=== PATIENT | male | born 1970 | race Caucasian/White ===

== ENCOUNTER 2024-01-09 05:08 | Inpatient (IN) | payer BC, SELFPAY ==
[2024-01-08 18:44] VITALS: BP 135/103
[2024-01-08 19:04] LABS: % Basophils 0.5 % (0-2); % Eosinophils 0.8 % (0-6); % Immature Granulocytes 0.4 % (0-0.5); % Monocytes 7.5 % (1.7-9.3); % Neutrophils 78.8 % (42.2-75.2); Absolute Basophils 0.1 10^3/uL (0-0.2); Absolute Eosinophils 0.1 10^3/uL (0-0.7); Absolute Immature Granulocytes 0.1 10^3/uL (0-0.05); Absolute Lymphocytes 1.7 10^3/uL (1.2-3.4); Absolute Monocytes 1.1 10^3/uL (0.1-0.6); Absolute Neutrophils 11.3 10^3/uL (1.4-6.5); Hematocrit 44.2 % (39.0-52.0); Hemoglobin 16.3 g/dL (13.0-18.0); Mean Corp Hgb Conc. 36.9 g/dL (33.0-37.0); Mean Corpuscular Hgb 30.1 pg (27.0-31.0); Mean Corpuscular Volume 81.7 fL (80.0-94.0); Nucleated Red Blood Cells % 0 % (-); Platelet Count 175 10^3/uL (130-400); Red Blood Cell Count 5.41 10^6/uL (4.70-6.10); Red Cell Dist. Width 12.1 % (11.5-14.5); White Blood Cell Count 14.4 10^3/uL (4.8-10.8)
[2024-01-08 19:14] LABS: Lactic Acid 3.8 mmol/L (0.7-2.0)
[2024-01-08 19:17] LABS: Erythrocyte Sed Rate 7 mm/hour (0-20)
[2024-01-08 19:20] LABS: C-Reactive Protein < 5.00 mg/L (0.0-10.00)
[2024-01-08 19:41] LABS: ALT (SGPT) 47 U/L (0-50); AST (SGOT) 36 U/L (17-59); Albumin 5.1 g/dl (3.5-5.0); Alkaline Phosphatase 71 U/L (38-126); Blood Urea Nitrogen 29 mg/dl (9-20); Calcium 9.7 mg/dl (8.4-10.2); Carbon Dioxide 20 mmol/L (22-30); Chloride 97 mmol/L (98-107); Glucose 326 mg/dl (70-99); Potassium 4.4 mmol/L (3.5-5.1); Sodium 135 mmol/L (135-145); Total Bilirubin 1.4 mg/dl (0.2-1.3); Total Protein 7.6 g/dl (6.3-8.2); eGFR 55.32
--- NOTE | 2024-01-08 21:47 | ED.GENMED ---
History of Present Illness
<Meggan Jenkins DO, Resident - Last Filed: 01/08/24 23:02>
General
Chief Complaint: Numbness
Source: patient
Exam Limitations: none
Time Seen by Provider: 01/08/24 20:48
Nursing documentation reviewed up to this point in time: agreed with
History of Present Illness
History of Present Illness:
Mr. 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 These sx started when he awoke on (01/02). He reports feeling like his legs will give
out on him due to the numbness, but has not fallen. 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 Today, he put his respirator mask on and the L leg numbness shot into his L side, chest, and arm. This resolved after taking the mask off. Reports
concern over being dehydrated due to nature of his work and recent high temperatures. Has had headaches, but he suspects they are due to dehydration. He denies back pain, saddle anesthesia, and incontinence. Denies hx trauma.
2 weeks ago pt [place] [facility] [employer] [employer] [place] and drank well water there. 1 week ago, pt reports 1 day of nonbloody diarrhea and vomiting. About the same time, he had a 'chest cold' with cough productive of clear
mucous.
Pt does not follow with PCP.
Past History
<Meggan Jenkins DO, Resident - Last Filed: 01/08/24 23:02>
Past History
ED Past Medical History: Other (lyme disease)
Review of Systems
<Meggan Jenkins DO, Resident - Last Filed: 01/08/24 23:02>
Review of Systems
All Other Systems: ROS reviewed and negative except as documented in HPI and ROS
Constitutional: Denies fever or night sweats
Cardiac: Reports diaphoresis; Denies palpitations
ABD/GI: Denies abdominal pain
Neurological: Reports headache, weakness and numbness; Denies dizzy
Phy Exam
<Meggan Jenkins DO, Resident - Last Filed: 01/08/24 23:02>
Physical Exam
Physical Exam:
.
General Physical Exam
General Presentation: mild distress
General age: appears older than age
General Skin: warm
General Mental: alert
ENT Exam
ENT Exam: normocephalic
Cardiovascular Exam
Cardiovascular Exam: no edema, no gallop, no JVD, no murmur, normal peripheral pulses (+2 b/l popliteal, posterior tibial pulses), tachycardia and other (regular rhythm)
Heart Sounds: normal
Pulmonary Exam
Pulmonary Exam: lungs clear, no respiratory distress, no rales, chest non tender, no rhonchi and no wheezing
Oxygen Status: room air
Cough: no cough
Gastrointestinal Exam
Gastrointestinal Exam: normal bowel sounds, non tender, soft, no organomegaly and non distended
Neurological Exam
Neurological Exam: alert, oriented x3, speech normal, motor weakness, sensory deficit and other (b/l negative straight leg test, negative pronator drift)
Motor
Bilateral upper extremities: 5
Bilateral lower extremities: 3
Sensory
Sensory Exam: other (decreased sensation to touch in R lower extremity. Decreased sensation to touch in Left L1, L2, L3,L5 dermatomes. Loss of sensation to touch in Left L4, S1, S2 dermatomes.)
Course
<Meggan Jenkins DO, Resident - Last Filed: 01/08/24 23:02>
Orders/Labs/Results
Orders:
Orders
01/08/24 18:48
Electrocardiogram (*1) Urgent
Reason for Study: Fatigue / Weakness
US Legs, Bilateral [US Periph Venous LOWER Ext Omid] Urgent
Comment:
Reason For Exam: numbness/tingling
01/08/24 18:49
EKG- Treatment ONCE
01/08/24 18:56
C-Reactive Protein Urgent
Complete Blood Count/With Diff Urgent
Comprehensive Metabolic Panel Urgent
Erythrocyte Sed Rate Urgent
Lactic Acid Urgent
01/08/24 21:45
0.9% Sodium Chloride 1000 ml [Nss] 1,000 ml IV BOLUS
01/09/24 00:25
CT Head W/o Iv Contrast Urgent
Reason For Exam: new onset leg numbness and weakness
Abnormal Lab Results
01/08/24
18:56
WBC 14.4 H 10^3/uL
(4.8-10.8)
MPV 11.0 H fL
(7.4-10.4)
Abs Immat Gran (auto) 0.1 H 10^3/uL
(0-0.05)
Absolute Neuts (auto) 11.3 H 10^3/uL
(1.4-6.5)
Absolute Monos (auto) 1.1 H 10^3/uL
(0.1-0.6)
Neutrophils % 78.8 H %
(42.2-75.2)
Lymphocytes % 12.0 L %
(20.5-51.1)
Chloride 97 L mmol/L
(98-107)
Carbon Dioxide 20 L mmol/L
(22-30)
BUN 29 H mg/dl
(9-20)
Creatinine 1.5 H mg/dL
(0.7-1.3)
Glucose 326 H mg/dl
(70-99)
Lactic Acid 3.8 H mmol/L
(0.7-2.0)
Total Bilirubin 1.4 H mg/dl
(0.2-1.3)
Albumin 5.1 H g/dl
(3.5-5.0)
01/08/24 18:56
01/08/24 18:56
Vital Signs
Initial and Last Documented VS:
Initial Vital Signs
Temp Pulse Resp BP Pulse Ox
98.2 F 109 20 135/103 95
01/08/24 18:44 01/08/24 18:44 01/08/24 18:44 01/08/24 18:44 01/08/24 18:44
Last Documented Vital Signs
Temp Pulse Resp BP Pulse Ox
98.2 F 88 16 134/96 98
01/08/24 18:44 01/09/24 00:31 01/09/24 00:31 01/09/24 00:31 01/09/24 00:31
<Osmani Hays, DO - Last Filed: 01/09/24 01:25>
Orders/Labs/Results
Orders:
Orders
01/08/24 18:48
Electrocardiogram (*1) Urgent
Reason for Study: Fatigue / Weakness
US Legs, Bilateral [US Periph Venous LOWER Ext Omid] Urgent
Comment:
Reason For Exam: numbness/tingling
01/08/24 18:49
EKG- Treatment ONCE
01/08/24 18:56
C-Reactive Protein Urgent
Complete Blood Count/With Diff Urgent
Comprehensive Metabolic Panel Urgent
Erythrocyte Sed Rate Urgent
Lactic Acid Urgent
01/08/24 21:45
0.9% Sodium Chloride 1000 ml [Nss] 1,000 ml IV BOLUS
01/09/24 00:25
CT Head W/o Iv Contrast Urgent
Reason For Exam: new onset leg numbness and weakness
Abnormal Lab Results
01/08/24
18:56
WBC 14.4 H 10^3/uL
(4.8-10.8)
MPV 11.0 H fL
(7.4-10.4)
Abs Immat Gran (auto) 0.1 H 10^3/uL
(0-0.05)
Absolute Neuts (auto) 11.3 H 10^3/uL
(1.4-6.5)
Absolute Monos (auto) 1.1 H 10^3/uL
(0.1-0.6)
Neutrophils % 78.8 H %
(42.2-75.2)
Lymphocytes % 12.0 L %
(20.5-51.1)
Chloride 97 L mmol/L
(98-107)
Carbon Dioxide 20 L mmol/L
(22-30)
BUN 29 H mg/dl
(9-20)
Creatinine 1.5 H mg/dL
(0.7-1.3)
Glucose 326 H mg/dl
(70-99)
Lactic Acid 3.8 H mmol/L
(0.7-2.0)
Total Bilirubin 1.4 H mg/dl
(0.2-1.3)
Albumin 5.1 H g/dl
(3.5-5.0)
01/08/24 18:56
01/08/24 18:56
Vital Signs
Initial and Last Documented VS:
Initial Vital Signs
Temp Pulse Resp BP Pulse Ox
98.2 F 109 20 135/103 95
01/08/24 18:44 01/08/24 18:44 01/08/24 18:44 01/08/24 18:44 01/08/24 18:44
Last Documented Vital Signs
Temp Pulse Resp BP Pulse Ox
98.2 F 88 16 134/96 98
01/08/24 18:44 01/09/24 00:31 01/09/24 00:31 01/09/24 00:31 01/09/24 00:31
<Meggan Jenkins DO, Resident - Last Filed: 01/08/24 23:02>
MDM/Problems Addressed
Differential Diagnosis Includes:
ischemic stroke, PE, neurodegenerative disorder, guillain-barre syndrome, lumbar nerve compression, DVT, zoster radiculoganglionitis
MDM/Problems Addressed:
PE, DVT unlikely due to normal SpO2, normal breath sound throughout lungs, no evidence of DVT on peripheral u/s.
Zoster radiculoganglionitis unlikely due to sx being b/l and crossing midline, no preceding pain, no rash.
Lumbar nerve compression less likely because sx started suddenly, are b/l, and no hx trauma.
Chronic conditions affecting care: Other (lyme disease)
<Meggan Jenkins DO, Resident - Last Filed: 01/08/24 23:02>
*Radiology
Radiology exam reviewed: radiology read reviewed
*Pulse Oximetry
Patient hypoxic: no
*EKG
Interpreted by ED Provider?: Yes
EKG Intrepretation Date: 01/08/24
EKG Intrepretation Time: 22:48
Interpretation: normal
Comparison EKG: no comparison EKG present
Heart Rate: 98
Rate: normal
Rhythm: sinus
Interval: normal interval
QRS Pattern: normal QRS
Ischemia: no ischemia
*Critical Care Note
Total Time (30-74mins, 75-104mins- exclusive of procedures): Not Applicable
<Osmani Hays DO - Last Filed: 01/09/24 01:25>
*Instrument Person Interpretation
Rate: normal
Interpretation: normal
Heart Rate: 95
Rhythm: sinus
Data Reviewed
Review of Other/Old Records Reveals: Radiology Studies (CT head no acute findings)
<Osmani Hays DO - Last Filed: 01/09/24 01:25>
Patient Management
Discussion with other providers: Hospitalist
Escalation/DeEscalation of care consider admission/obs:
Admit indicated
ED Attending Note
<Meggan Jenkins DO, Resident - Last Filed: 01/08/24 23:02>
-
Portions of this chart may have been created with voice recognition software.� Occasional wrong word or��sound alike� substitutions may have occurred due to the inherent limitations of voice recognition software.
<Omsani Hays DO - Last Filed: 01/09/24 01:25>
ED Attending Note
Patient seen and examined by attending physician: Yes
I performed a history and physical exam of patient and discussed management with resident, I reviewed resident's note and agree with documented findings and plan of care.: Yes
ED Attending Note:
I have reviewed and agree with history and treatment plan by Meggan Jenkins. My exam revealed 53-year-old male, afebrile, ambulating with subjective numbness. Normal pulses in all extremities. Mid to hospitalist for further workup of lower leg
weakness and paresthesias, as well as lactic acidosis of unclear etiology. No focal infection found.
Discharge Plan
Departure
Patient Disposition: Admit
Date of Disposition: 01/09/24
Time of Disposition: 01:21
Admit to: Telemetry
Presentation/result/management discussed w/ accepting MD/DO: Hospitalist
Patient with high blood pressure during this ER visit?: Yes
Condition: Fair
Discharge Problem:
Bilateral leg weakness, Acute lactic acidosis
Referrals:
NONE,* [Family Provider] -
Interventions
Interventions:
*Risk Screen - Suicide Last Done: 01/08/24 18:44
*General Assessment Last Done: 01/08/24 18:44
*Neglect/Abuse Screening Last Done: 01/08/24 18:44
*ED COVID-19 Vaccine History Last Done: 01/08/24 22:36
ED- Neurological Assessment Last Done: 01/08/24 22:36
Discharge Date and Time
Print Language: SYRIAC
[2024-01-08] MEDS: NSS 1000 IV (22:04)
[2024-01-08 22:36] VITALS: BP 133/83
[2024-01-09 00:31] VITALS: BP 134/96
--- NOTE | 2024-01-09 04:19 | HPS.HSE ---
Family Physician
-
Family Physician: * NONE
Chief Complaint
-
Leg weakness and numbness
History of Present Illness
This is a 52-year-old male with no known significant past medical history who presents to the emergency department with approximately 1 week of leg weakness and numbness.
Patient reports being in usual state of health up until about a week ago when he suddenly developed a sense of fatigue in his legs bilaterally. He tried to hydrate himself and rest as he has been spending a lot of time in the sun. Despite this
measures the patient reports that the symptoms persisted and needed suddenly developed numbness in the bilateral lower extremities though he feels it is more prominent on the left side. He reports an episode where the numbness appeared to arise all
the way to his chest on the left side but this lasted however very brief. And then resolved. The numbness appeared to arise to the hips bilaterally. He denies any incontinence of the bladder or bowel. He denies any difficulty defecating. He
denies any difficulty emptying his bladder. He denies any slurred speech, double vision, dry eyes, facial asymmetry, normal headache, lightheadedness or dizziness.
Patient denies any recent cold or flulike symptoms. He denies any recent episodes of diarrhea. He denies any medications, supplements or intoxicants. He has no known sick contact. He has no recent travels. Patient denies any falls or injuries.
Denies any prior back injuries or surgeries. He works [employer] and denies any exposure to toxins. Denies alcohol use.
Reports prior history of Lyme disease. Denies any rash. Denies history of STDs.
In the ED he was afebrile hemodynamically stable and in no acute distress. CBC is completely within normal limits except for a slight leukocytosis to 14,000. Chemistries were normal except for serum creatinine of 1.5. Glucose was elevated at 326.
Lactic acid was also elevated at 3.8. His CRP was within normal limits. ECG showed normal sinus rhythm with left anterior fascicular block. Head CT was unremarkable. Bilateral LE u/s was negative for DVT.
Medical History
Past Medical History
Past Medical History: Reports None
Past Surgical History: Reports None
Social History
Tobacco: Former Smoker
Alcohol: None
Drug: None
Personal: Single
Living: Alone
Employment: Employed
Family History
Family History: Diabetes and Other (ETOH)
Allergies / Home Medications
Allergies reflects when Allergies were last updated in [facility].
Home Medications with original date entered in [facility]
Allergy/Medication List:
Allergies
Allergy/AdvReac Type Severity Reaction Status Date / Time
Penicillins Allergy Unknown Verified 01/08/24 18:44
Home Medications
No Meds [No Current Medications] 01/09/24
Review of Systems
-
Constitutional: Reports No Symptoms
EENT: Reports No Symptoms
Respiratory: Reports No Symptoms
Cardiac: Reports No Symptoms
Abdomen/GI: Reports No Symptoms
: Reports No Symptoms
Musculoskeletal: Reports No Symptoms
Skin: Reports No Symptoms
Neurological: Reports Weakness and Numbness
Endocrine: Reports No Symptoms
Hematologic/Lymphatic: Reports No Symptoms
Psych: Reports No Symptoms
Physical Exam
Vital Signs
Vital Signs
Temp Pulse Resp BP Pulse Ox
98.2 F 88 16 134/96 98
01/08/24 18:44 01/09/24 00:31 01/09/24 00:31 01/09/24 00:31 01/09/24 00:31
Physical Exam
General: Well Developed, Well Nourished and Comfortable
HEENT: NormoCephalic, Anicteric, Moist mucous membranes and Atraumatic
Respiratory: Clear
Cardiac: S1/S2 and Regular Rhythm
GI: Soft, Non Tender, Non Distended and Normal Bowel Sounds
Rectal: Other
Genito-urinary: Deferred by me
Musculoskeletal: No Clubbing, No Cyanosis and No Edema
Skin: Warm
Neuro: AO x 3, No Motor Deficits, Cranial Nerves Intact, DTR's Intact & Symmetrical and Other (decreased sensation to light touch in the lower extremities bilaterally starting at about the L1 dermatome. Intact hot/cold sensation Could not assess
pin-prick. There is loss of propioception)
Hematologic/Lymphatic: No Lymphadenopathy
Psych: Calm
Laboratory Results
-
01/08/24 18:56
01/08/24 18:56
Laboratory Results
Lactic Acid 3.8 mmol/L (0.7-2.0) H 01/08/24 18:56
Total Bilirubin 1.4 mg/dl (0.2-1.3) H 01/08/24 18:56
AST 36 U/L (17-59) 01/08/24 18:56
ALT 47 U/L (0-50) 01/08/24 18:56
Alkaline Phosphatase 71 U/L (38-126) 01/08/24 18:56
Data Reviewed
-
CT Scan: Report Reviewed by me
Ultrasound: Report Reviewed by me
Medical Tests (Nuc Med, Echo, EKG etc): Image Personally Visualized and interpreted
Lab Data: Labs Reviewed by me
Impression/Plan
-
IMPRESSION:
Patient with acute onset numbness in the bilateral lower extremities x 1 week with associated subjective weakness. Exam reveals sensory loss of light touch and proprioception. Strength is grossly intact and reflexes are intact. Heat/Cold sensation
is intact. There is mild unsteadiness of gait. Overall picture suggest a polyneuropathy versus spinal cord lesion in the thoracic area affecting dorsal columns such as transverse myelitis syringomyelia syphllis versus but less likely cord
compression. The history and labs are not immediately suggestive of an etiology.
PLAN:
1. Numbness/Weakness -
- admit to med/surg
- mri brain and thoracic spine for identifying inflammaory and possibly infectious lesions
- check a1c, syphillis, hiv, b12, cpk
- neurology consultation
- pt evaluation
2. Hyperglycemia - No known past medical hx. No polydispia. + Family Hx
- check a1c and lipid panel
- iv fluids and montior for now
DVT PPX - SCDs
Code Status - Full Code
[2024-01-09 05:51] LABS: Lactic Acid 1.8 mmol/L (0.7-2.0)
[2024-01-09 06:00] VITALS: BMI 26.9
[2024-01-09 06:15] VITALS: BP 133/95
--- NOTE | 2024-01-09 06:32 | PTCARENOTE ---
Patient arrived to room 3353. Oriented to room and use of call nettles. Able to transfer from stretcher to bed. All questions answered. VSS. Pt reports continued numbness/tingling to bilat LE. Admission questions completed. Labs re-drawn and sent.
[2024-01-09 07:06] LABS: Blood Urea Nitrogen 24 mg/dl (9-20); Calcium 8.8 mg/dl (8.4-10.2); Carbon Dioxide 25 mmol/L (22-30); Chloride 105 mmol/L (98-107); Creatine Phosphokinase 98 U/L (55-170); Estimated Creatinine Clearance 124 ml/min; Glucose 234 mg/dl (70-99); HDL Cholesterol 33 mg/dl; LDL Cholesterol, Calculated 105 mg/dl; Magnesium 1.8 mg/dl (1.6-2.3); Potassium 4.1 mmol/L (3.5-5.1); Sodium 138 mmol/L (135-145); Total Cholesterol 156 mg/dl (50-199); Triglyceride 91 mg/dl (10-149); Very Low Density Lipoprotein 18 mg/dl (0-30); eGFR > 60.00
[2024-01-09 08:02] LABS: Vitamin B12 207 pg/ml (239-931)
[2024-01-09 08:19] VITALS: BP 125/88
--- NOTE | 2024-01-09 08:24 | W.PN.HOSP.TC ---
Documented by User: Cirilo Weaver MD, Resident 01/09/24 13:20
Today's Communication/Plan
-
Will wait for further blood tests to return to further rule out pathological causes of patient's LE Numbness/sensory deficit. Possible MRI imaging. Will take several days for HIV/Syphilis testing to return.
Assessment / Plan
Assessment / Plan
53 yo gentleman with no prior medical history presented to the ED with a 1 week history of numbness in the lower extremities bilaterally
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
#Numbness/Weakness in the BL Lower Extremities
- BL LE numbness, L greater than R, muscle strength 4/5 in LLE and 5/5 in the RLE, UE sensation/motor intact. Proprioception diminished in the LLE.
- Neurology consulted; neuropathy vs. myelopathy. No further recommendations at this time.
- Syphilis RPR pending, HIV pending. Will take a few days - send out.
- Peripheral Vascular Ultrasound Doppler (-) for DVT
- Head Ct shows no acute intracranial abnormality. Pending MRI of the Brain, Cervical Spine/Thoracic Spine. May not go, pending Neuro evaluation.
- Will treat with [id number] B12 inj QD for 7 days, then Qweek, for one month, then monthly until symptoms resolve and/or B12 levels reach adequate levels. Patient will need to be on B12 supplementation life song to prevent recurrent symptoms.
#Leukocytosis?
- Unknown etiology, possibly reactive
#Vitamin B 12 Deficiency; uncertain etiology
- B12 level 207. No macrocytic anemia.
- Given 1000mcg IM injection x1 + Folate/B12 Supplement. Will monitor for symptomatic improvement.
- Consider MTHFR variant vs. Pernicious anemia possibly secondary to autoimmune gastritis.
- Homocysteine, MMA, and MTHFR Variant tests pending
#newly Diagnosed Diabetes Mellitus, Type II, uncontrolled
#Hyperglycemia
- Has not seen a PCP in years; never been diagnosed with DM
- Glucose in ED elevated with no prior history of DM
- A1C% 10.1
- Lipid Panel checked: Tg 91, TChol. 156, LDL 105, HDL 33
- began on moderate insulin sliding scale. Will discuss PO agents when transitioning to outpatient as this diagnosis is new.
#Dispo: Med/Surg
- Diet: Regular
- DVT PPx: Lovenox SC
- Code: Full Code
Anticipated Discharge: 24 - 48 hours
Subjective/Interval History
-
Seen in the AM. No new complaints. No changes in symptoms of numbness. Reporting weakness and unsteadiness of his feet which is unchanged from prior. There were no overnight events.
Objective Data
-
Labs:
Laboratory Results
01/09/24 01/09/24
05:25 06:38
Sodium Cancelled 138
Potassium Cancelled 4.1
Chloride Cancelled 105
Carbon Dioxide Cancelled 25
BUN Cancelled 24 H
Creatinine Cancelled 0.8
Glucose Cancelled 234 H
Calcium Cancelled 8.8
Vital Signs:
Vital Signs
Temp Pulse Resp BP Pulse Ox
97.7 F 82 16 133/95 94
01/09/24 06:20 01/09/24 07:53 01/09/24 07:53 01/09/24 06:15 01/09/24 07:53

Documented by User: Ti Blackwood DO 01/09/24 13:44
Physical Exam
-
General: No Apparent Distress, Comfortable and Respiratory Distress
HEENT: Normocephalic, Atraumatic, Moist Mucous Membranes and Anicteric
Respiratory: Clear to Auscultation and Non Labored Respirations; Negative Wheezes, Rales or Rhonchi
Cardiac: Regular Rhythm and S1/S2; Negative Murmur, Rub or Gallop
GI: Soft, Nontender, Nondistended and Normal Bowel Sounds
Musculoskeletal: No Clubbing, No Cyanosis and No Edema
Skin: Warm and Dry; Negative Rash
Neuro: AO x 3, Central Nerve's Intact and Other (4/5 MMS to Left foot dorsiflexion and knee flexion. 4+/5 MMS to remainder of LLE musculature. Reduced sensation over the medial left calf. 0+ DTR to lower extremities)
Data Reviewed
-
Labs: Labs Reviewed by me
--- NOTE | 2024-01-09 08:41 | PTCARENOTE ---
Assumed care of patient this AM. Patient AAO x3. Patient reports numbness in both legs with left greater than the right. Symptoms started about 1 week ago. Numbness is on the plantar region of bilateral feet and extends to the thighs. Patient
denies any pain. He is steady in his ambulation but is very careful with walking because of numbness. Patient is ringing for RN to go to bathroom. MRI of spine ordered. Neurology to see patient. Patient currently out of bed to chair eating
breakfast. Patient is ordered med-surgical. Vital signs stable, afebrile.
[2024-01-09] MEDS: FOLTX 1 TABLET PO (09:01)
[2024-01-09] MEDS: CYANOCOBALAMIN 1000 MCG IM (09:02)
[2024-01-09 11:32] LABS: Glycohemoglobin (HgbA1c) 10.1 % (4.0-5.6)
[2024-01-09] MEDS: NOVOLOG FLEXPEN-MODERATE RESISTANCE 5 UNITS SC (13:10)
[2024-01-09 13:25] LABS: Glucose - Point of Care 270 mg/dl (70-99)
--- NOTE | 2024-01-09 14:47 | PTCARENOTE ---
Report given to Majo GO. Patient transferred to [facility] bed 2 in wheelchair by transport. All belongings with the patient.
--- NOTE | 2024-01-09 15:03 | PTCARENOTE ---
Received pt from IMU via WC; accompanied by IMU staff. Pt AAO x3, OCHOA well; ambulatory to bed with assist x1; gait sl unsteady; pt states legs are numb for low hips-feet; no tactile sensation; weak dorsal and plantar flexion. Fall prec initiated.
VSS. On room air- pulse ox 96%, no SOBnoted. Abd soft, rounded, on reg diet. Pt DTV; states he will ambulate to BR with assistance; urinal at bedside. Afebrile; W/D/I. Rt AC INT P/I without sx of infiltration. Oriented to 4east, currently
resting comfortably. Will continue to monitor.
--- NOTE | 2024-01-09 15:20 | CM ---
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 Room air. Receiving SC Insulin. PT/OT Evals pending. MRI C&T Spine pending.
Spoke with patient who resides in a 1 story in-law unit with 1 CHAKA, attached to garage on property where his mother also resides.
The patient has been independent in ADLs and ambulation.
He was active working as a [employer] until yesterday.
The patient reports that recently his left leg has been weak and almost giving out when walking.
The patient has no DME.
No prior VN.
He has no PCP however he contacted [employer] with his union who is helping him find one.
[facility] - [facility]
The patient says he is single and has no children.
He helps his mother with chores but she is otherwise able to care for herself.
Plan follow up after seen by PT/OT.
[2024-01-09 15:25] VITALS: BP 100/70
[2024-01-09] MEDS: XANAX 0.5 MG PO (16:13)
[2024-01-09 16:39] LABS: Iron 161 ug/dl (49-181)
[2024-01-09 16:48] LABS: Percent Saturation 52 % (20-50); Total Iron Binding Capacity 308 ug/dl (261-462)
[2024-01-09 18:23] LABS: Glucose - Point of Care 132 mg/dl (70-99)
[2024-01-09] MEDS: LOVENOX 40 MG SC (18:29)
[2024-01-09] MEDS: NOVOLOG FLEXPEN-MODERATE RESISTANCE SC (18:29)
--- NOTE | 2024-01-09 20:01 | CON.NEURO4 ---
Consultation - Neurology 4
-
CONSULTING PHYSICIAN: Diego Mcmanus MD(Neurology)
REFERRING PHYSICIAN: Hospitalist
DICTATED BY: Diego Mcmanus MD
DATE/TIME OF REQUEST:
DATE/TIME OF CONSULTATION: 1129
Reason for Consultation: Numbness in his legs x 6 days
History of Present Illness:
This is a 53 year old right) handed (male who has presented to the hospital with (chief complaint) of numbness in his legs since Jan 02. He gives a h/o remote alcohol use stopped 2017, uncontrolled NIDDM who had been in his USOH till
. On AM he had difficulty getting his legs out of the bed
he had difficulty walking driving. Since he remained independent in all ADLs, he did not seek medical attention
No pain radiating down his neck. No groin numbness or saddle anesthesia. No incontinence. No impotence.
He reports his legs will give out on him due to the numbness, but has not fallen. 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
Yesterday, he put his respirator mask on and the L leg numbness shot into his L side, chest, and arm. This resolved after taking the mask off. Reports concern over being dehydrated due to nature of his work and recent high temperatures. Has had
headaches, but he suspects they are due to dehydration. He denies back pain, saddle anesthesia, and incontinence. Denies hx trauma.
2 weeks ago pt attended a fish festival at the [employer] in [place], [place] and drank well water, 1 week ago,
Pat reports 1 day of nonbloody diarrhea and vomiting. About the same time, he had a 'chest cold' with cough productive of clear mucous
Past Medical History: NIDDM
Surgical History: NC
Family History: NC
Social History: Single lives at home with his mother
Allergies: PCN
Home Medications: None
Review of Symptoms:
Patient denies any fever, headache, chest pain, shortness of breath, GI or symptoms.
�Per the HPI.�All systems are reviewed negative except above.
'
Vital Signs:
The patient has a
Temp Pulse Resp BP Pulse Ox
97.7 F 82 16 133/95 94
Physical Exam:
The patient is afebrile, heart sounds S1 and S2 are (regular / irregular), and chest is clear to auscultation bilaterally.
- If not clear, describe.
Neurologic Examination:
The patient is awake, alert and oriented x 3. (He is able to follow commands and answer questions appropriately. Speech is fluent There is no aphasia or dysarthria. On cranial nerve assessment, pupils are 3 mm bilateral, round and reactive to light
and accommodation. Visual [place] are full. Extraocular movements are intact. Facial sensations are intact and bilaterally symmetrical, there is no facial asymmetry. Hearing is intact bilaterally to normal conversation volume. Tongue palate and
uvula are midline. Sternocleidomastoid strengths are full bilaterally.
Motor strengths are 5/5 bilateral upper and 4/5 lower extremities, with left leg being weaker. There is no drift or involuntary movement noted.
Deep tendon reflexes are absent bilateral upper and lower extremities and Babinski is absent bilaterally.
Sensations of pain, touch, temperature and vibration are impaired and bilaterally asymmetrical. There was extinction noted on double simultaneous stimulation.
Sensory level T4-T6
Coordination is intact by finger to nose bilaterally. Rombergs unsteady. Gait Independent
Lab Results: Addendum. B12 207
Neuro Imaging: CT head Atrophy. Minimal WMD. Normal ventricles
Impression:
Mr. ODALYS DAVENPORT is a 53 year old M who has presented to the hospital with (symptoms/chief complaint) of numbness in his legs since .
Differentials for the patient's presentation include:
1. Peripheral neuropathy secondary to DM / Guillain [place]/ Alcohol. B12
2. Cervical vs Thoracic myelopathy
3. Lumbar radiculopathy
Recommendations:
1. MRI C-Spine
2. MRI T- Spine
3. MRI Lumbar Spine
4. Lumbar puncture: Albuminocytological dissoc
5. B12/B1 supplement
6. RPR/VDRL
7. PT/OT
8. Lymes titer
9. Blood sugar management
Discussed patient care with: Patient and hospitalist
Allergies
-
Allergies
Allergy/AdvReac Type Severity Reaction Status Date / Time
Penicillins Allergy Unknown Verified 01/08/24 18:44
Vital Signs and Labs
-
Vital Signs and Labs:
Vital Signs
Temp Pulse Resp BP Pulse Ox
36.7 C 89 20 100/70 96
01/09/24 15:25 01/09/24 15:25 01/09/24 15:25 01/09/24 15:25 01/09/24 15:25
Lab Results
01/08/24 18:56
01/09/24 06:38
Sodium 138 mmol/L (135-145) 01/09/24 06:38
Potassium 4.1 mmol/L (3.5-5.1) 01/09/24 06:38
BUN 24 mg/dl (9-20) H 01/09/24 06:38
Glucose 234 mg/dl (70-99) H 01/09/24 06:38
Calcium 8.8 mg/dl (8.4-10.2) 01/09/24 06:38
LDL Cholesterol, Calc 105 mg/dl 01/09/24 06:38
Vitamin B12 207 pg/ml (239-931) L 01/09/24 06:38
Medications
-
Active Medications
Generic Name Dose Route Start Last Admin
Trade Name Freq PRN Reason Stop Dose Admin
Acetaminophen 650 mg 01/09/24 05:15
Acetaminophen 325 Mg Tablet PO 02/06/24 05:14
Q4HPRN PRN
mild pain/GUSTAFSON/temp> 100.4F
Bisacodyl 10 mg 01/09/24 05:15
Bisacodyl 10 Mg Rectal Suppository RECTAL 02/06/24 05:14
[id number] PRN
constipation
Cyanocobalamin 1,000 mcg 01/09/24 09:00 01/09/24 09:02
Cyanocobalamin (1000 Mcg/Ml) 1 Ml Vial IM 02/06/24 08:59 1,000 mcg
DAILY MARELY Administration
Dextrose 12.5 grams 01/09/24 11:46
Dextrose 50% (0.5 Grams/Ml) 50 Ml Syringe IV 02/06/24 11:45
[id number] PRN
hypoglycemia
Protocol
Enoxaparin Sodium 40 mg 01/09/24 18:00 01/09/24 18:29
Enoxaparin Sodium 40 Mg/0.4 Ml Syringe SC 02/06/24 17:59 40 mg
QPM MARELY Administration
Folic Acid 1 tablet 01/09/24 09:00 01/09/24 09:01
Folbic (Same As Foltx) PO 02/06/24 08:59 1 tablet
DAILY MARELY Administration
Glucagon 1 mg 01/09/24 11:46
Glucagon 1 Mg Vial IM 02/06/24 11:45
PRN PRN
hypoglycemia
Protocol
Insulin Aspart 0 units 01/09/24 12:00 01/09/24 18:29
Insulin Aspart Moderate Resistance 300 Units/3 Ml Pen.Injctr SC 02/06/24 11:59 Not Given
AC MARELY
Protocol
Polyethylene Glycol 17 grams 01/09/24 05:15
Polyethylene Glycol Powder 17 Grams Packet PO 02/06/24 05:14
DAILYPRN PRN
constipation
Senna/Docusate Sodium 1 tablet 01/09/24 05:15
Docusate W/Senna (Lisa-Colace) Tablet PO 02/06/24 05:14
BIDPRN PRN
constipation
Sodium Chloride 0 flush 01/09/24 02:00
Sodium Chloride 0.9% (Flush) Syringe IV 02/06/24 01:59
PER PROTOCOL MARELY
Home Medications
�Medication �Instructions �Recorded
No Meds [No Current Medications] 01/09/24
[2024-01-09 21:09] LABS: Glucose - Point of Care 286 mg/dl (70-99)
[2024-01-09] MEDS: VITAMIN B1 200 MG PO (21:14)
[2024-01-09 23:16] VITALS: BP 106/71
[2024-01-10 06:52] VITALS: BP 113/76
[2024-01-10 08:04] LABS: Glucose - Point of Care 194 mg/dl (70-99)
--- NOTE | 2024-01-10 08:30 | PN.DE.MGMTRT ---
Insulin Management
- -
01/10/2024 Diabetes Management Consult
Patient admitted 01/07 with bilateral leg weakness and numbness. PMH lyme disease and arthritis secondary to lyme. Prior to admission taking no medications. Has no primary doctor. A1C is 10.1%, cr .8, eGFR > 60.
On admission glucose 326.
Patient is awake alert and oriented, able to discuss diabetes management.
Will start glimepiride 1 mg daily. Patient had MRI with contrast 01/08, will start metformin 500 mg BID 01/10 with dinner.
Provided and instruct on Contour next glucose monitor good return demonstration. Reviewed steps for insulin and provided printed instructions. Patient hopes to avoid insulin. Discussed action of metformin and glimepiride and the importance of
diet. Patient often skips lunch, recommended at least protein fruit and yogurt or other carb at lunch.
Dietary consult ordered.
Will follow and adjust regimen based on glucose.
Diabetes History
- -
Type of Diabetes: 2
Pre-Admission Diabetes Regimen
Lab Results
Hemoglobin A1c 10.1 % (4.0-5.6) H 01/09/24 05:25
Insulin Pump Settings
IP Diabetes Regimen
01/09/24 01/09/24 01/09/24
13:06 18:21 21:07
POC Glucose 270 H 132 H 286 H
01/10/24
08:03
POC Glucose 194 H
Meal type: Dinner
Meal type: Lunch
Meal type: Breakfast
Amount consumed: 100%
Amount consumed: 100%
Amount consumed: 100%
Patient Education
[2024-01-10 08:34] LABS: % Basophils 0.7 % (0-2); % Eosinophils 3.5 % (0-6); % Immature Granulocytes 0.3 % (0-0.5); % Lymphocytes 27.4 % (20.5-51.1); % Neutrophils 58.1 % (42.2-75.2); Absolute Eosinophils 0.2 10^3/uL (0-0.7); Absolute Lymphocytes 1.7 10^3/uL (1.2-3.4); Absolute Monocytes 0.6 10^3/uL (0.1-0.6); Absolute Neutrophils 3.5 10^3/uL (1.4-6.5); Hematocrit 39.7 % (39.0-52.0); Mean Corp Hgb Conc. 35.3 g/dL (33.0-37.0); Mean Corpuscular Hgb 29.9 pg (27.0-31.0); Mean Corpuscular Volume 84.6 fL (80.0-94.0); Mean Platelet Volume 11.6 fL (7.4-10.4); Nucleated Red Blood Cells % 0 % (-); Platelet Count 106 10^3/uL (130-400); Red Blood Cell Count 4.69 10^6/uL (4.70-6.10); Red Cell Dist. Width 12.3 % (11.5-14.5)
[2024-01-10 08:38] LABS: Blood Urea Nitrogen 19 mg/dl (9-20); Calcium 8.9 mg/dl (8.4-10.2); Carbon Dioxide 26 mmol/L (22-30); Chloride 102 mmol/L (98-107); Estimated Creatinine Clearance 124 ml/min; Glucose 196 mg/dl (70-99); Potassium 4.6 mmol/L (3.5-5.1); Sodium 138 mmol/L (135-145); eGFR > 60.00
[2024-01-10 09:05] VITALS: BP 119/86; PULSE 84; O2SAT 97
[2024-01-10] MEDS: NOVOLOG FLEXPEN-MODERATE RESISTANCE 1 UNITS SC (09:19)
[2024-01-10 09:20] VITALS: BP 119/86; PULSE 80; O2SAT 97
[2024-01-10] MEDS: VITAMIN B1 100 MG PO (09:20)
[2024-01-10] MEDS: CYANOCOBALAMIN 1000 MCG IM (09:20)
[2024-01-10] MEDS: FOLTX 1 TABLET PO (09:20)
[2024-01-10 10:27] LABS: INR 1.03; PT 13.5 Sec (11.4-14.6)
[2024-01-10] MEDS: AMARYL 1 MG PO (11:08)
[2024-01-10 11:59] LABS: Glucose - Point of Care 217 mg/dl (70-99)
--- NOTE | 2024-01-10 12:00 | W.PN.HOSP.TC ---
Today's Communication/Plan
-
Pending Lumbar MRI, Lumbar Puncture. Will observe for improvement in symptoms and re-evaluate in the AM.
Assessment / Plan
Assessment / Plan
53 yo gentleman with no prior medical history presented to the ED with a 1 week history of numbness in the lower extremities bilaterally
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
#Numbness/Weakness in the BL Lower Extremities
- BL LE numbness, L greater than R, muscle strength 4/5 in LLE and 5/5 in the RLE, UE sensation/motor intact. Proprioception diminished in the LLE
- Neurology consulted; neuropathy vs. myelopathy. No further recommendations at this time
- Syphilis RPR pending, HIV pending. Will take a few days - send out
- Peripheral Vascular Ultrasound Doppler (-) for DVT
- Head Ct shows no acute intracranial abnormality
- MRI Cervical (some degenerative changes, w/o compression or abnormal enhancement). MRI Thoracic (Mild cord compression at T4-5. Mild cord compression at T7-8). Neither of these test so far fit his clinical picture. Will wait for MRI of the Lumbar
spine, with special attention to L5 vertebral level
- Will continue to treat with [id number] B12 inj QD for 7 days, then plan for Q/week for one month, then monthly until symptoms resolve and/or B12 levels reach adequate levels. Patient may need to be on B12 supplementation life song to prevent
recurrent symptoms
- Proceeding with Thiamine supplementation & Lumbar puncture per Neuro rec. to check for albuminocytological dissociation
#Leukocytosis (resolved)
- Unknown etiology, possibly reactive
#Vitamin B 12 Deficiency; uncertain etiology
- B12 level 207. No macrocytic anemia.
- Given 1000mcg IM injection x1 + Folate/B12 Supplement. Will monitor for symptomatic improvement
- Consider MTHFR variant vs. Pernicious anemia possibly secondary to autoimmune gastritis
- Homocysteine, MMA, and MTHFR Variant tests pending
#newly Diagnosed Diabetes Mellitus, Type II, uncontrolled
#Hyperglycemia
- Has not seen a PCP in years; never been diagnosed with DM
- Glucose in ED elevated with no prior history of DM
- A1C% 10.1
- Lipid Panel checked: Tg 91, TChol. 156, LDL 105, HDL 33
- began on moderate insulin sliding scale. Will discuss PO agents when transitioning to outpatient as this diagnosis is new.
- Diabetes management consult; rec. starting Glimeperide 1mg and metformin 500 BID. We agree with this assessment.
#Dispo: Med/Surg
- Diet: Regular
- DVT PPx: Lovenox SC
- Code: Full Code
Anticipated Discharge: 24 - 48 hours
Subjective/Interval History
-
Seen in the AM. No acute events overnight. Patient endorses minimal to no subjective improvement of symptoms. He is able to ambulate to the bathroom under supervision and has no new motor/sensory symptoms.
Objective Data
-
Labs:
Laboratory Results
01/10/24 01/10/24
08:04 10:04
WBC 6.0
Hgb 14.0
Hct 39.7
Plt Count 106 L D
PT 13.5
INR 1.03
Sodium 138
Potassium 4.6
Chloride 102
Carbon Dioxide 26
BUN 19
Creatinine 0.8
Glucose 196 H
Calcium 8.9
Vital Signs:
Vital Signs
Temp Pulse Resp BP Pulse Ox
98.2 F 66 20 113/76 97
01/10/24 06:52 01/10/24 06:52 01/10/24 06:52 01/10/24 06:52 01/10/24 06:52
I&O
01/09/24 01/10/24 01/11/24
06:59 06:59 06:59
Intake Total 1650 / 1650
Balance 1650 / 1650
Review of Systems
-
History Source: Patient
All other systems: Reviewed and negative
Constitutional: Reports No Symptoms
EENT: Reports No Symptoms Reported
Respiratory: Reports No Symptoms
Cardiac: Reports No Symptoms
Abdomen/GI: Reports No Symptoms
Breast: Reports N/A
Genitourinary: Reports No Symptoms
Musculoskeletal: Reports No Symptoms and Other (Fibrous, non-tender nodules on the plantar surface of the feet BL, mostly in line with the 1st Metatarsal )
Skin: Reports No Symptoms
Neuro: Reports Weakness (BL LE, left worse than right ) and Numbness (BL LE, Left worse than right)
Endocrine: Reports No Symptoms
Physical Exam
-
General: Well Developed, Well Nourished, No Apparent Distress and Comfortable
HEENT: Normocephalic, Atraumatic, Moist Mucous Membranes, Anicteric, [place] Conjunctivae and PERRLA
Respiratory: Clear to Auscultation
Cardiac: Regular Rhythm and S1/S2
Breast: N/A
GI: Soft, Nontender, Nondistended and Normal Bowel Sounds
Musculoskeletal: No Clubbing, No Cyanosis and No Edema
Neuro: Awake, Alert, Oriented, No Motor Deficits (4/5 muscle strength in the BL/LE), Central Nerve's Intact and No Sensory Deficits (Touch sensory deficit in the BL LE, Left worse than right. Distal proprioception decreased on the L, present on the
R. Temperature sensation BL diminished in the LE. Of note, patient has return of some sensation on the lateral aspect of the L Leg)
Psych: Calm
[2024-01-10] MEDS: NOVOLOG FLEXPEN-MODERATE RESISTANCE 3 UNITS SC (12:23)
[2024-01-10 15:13] VITALS: BP 102/70
--- NOTE | 2024-01-10 15:53 | W.PN.NEURO.1 ---
Today's Communication / Plan
-
.
Neuro Assessment/Plan
Assessment
This is a 53-year-old RH male who presented to on 01/08/24 with report of BLE numbness from his waist down starting one week ago.
-CT head 01/09/24: No acute intracranial abnormality.
-Cervical Spine MRI 01/09/24: No intrinsic cervical cord signal alteration or abnormal enhancement. Degenerative changes, as described. Please refer to above discussion for specific and additional details at individual levels.
-Thoracic Spine MRI 01/09/24: Multifocal small disc protrusions, as described. Please refer to above discussion for specific and additional details. Mild cord compression at T4-5. Mild cord compression at T7-8. No intrinsic thoracic cord signal
alteration or abnormal enhancement.
1. 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 B12
2. Cervical vs Thoracic myelopathy
3. Lumbar radiculopathy
4. New diagnosis uncontrolled NIDDM.
Plan
-MRI Lumbar Spine pending
-Lumbar puncture: Albuminocytological dissoc, pending.
-Vitamin B12 level is low at 107. B12/B1 supplement
-RPR/VDRL
-PT/OT
-Lyme titer
-Goal normoglycemia, hbA1c is 10.1. special education paraeducator consultation.
-DVT prophylaxis.
-Will follow pending results.
Subjective/Objective
Subjective Data
Date of Service: January 10, 2024
No acute events overnight. Patient reports that his numbness is improving, worse in the LLE compared to the RLE, and seems mostly from mid-thigh/knee area down instead of waist down. He denies any headache, dizziness, vision changes, speech/swallow
difficulty, bowel/bladder difficulty, chest pain, palpitations, and shortness of breath.
Objective Data
Vital Signs
Temp Pulse Resp BP Pulse Ox
98.2 F 66 20 113/76 97
01/10/24 06:52 01/10/24 06:52 01/10/24 06:52 01/10/24 06:52 01/10/24 06:52
Lab Results
01/10/24 08:04
01/10/24 08:04
PT 13.5 Sec (11.4-14.6) 01/10/24 10:04
INR 1.03 01/10/24 10:04
Sodium 138 mmol/L (135-145) 01/10/24 08:04
Potassium 4.6 mmol/L (3.5-5.1) 01/10/24 08:04
BUN 19 mg/dl (9-20) 01/10/24 08:04
Glucose 196 mg/dl (70-99) H 01/10/24 08:04
Calcium 8.9 mg/dl (8.4-10.2) 01/10/24 08:04
LDL Cholesterol, Calc 105 mg/dl 01/09/24 06:38
Vitamin B12 207 pg/ml (239-931) L 01/09/24 06:38
Patient Allergies
Penicillins Allergy (Verified 01/08/24 18:44)
Unknown
Review of Systems
-
History Source: Patient
EENT: Negative Blurry Vision, Decreased Vision or Swallowing Difficulty
Respiratory: Negative Cough or Trouble Breathing
Cardiac: Negative Chest Pain or Palpitations
Abdomen/GI: Negative Nausea, Constipated or Incontinence of Stool
Genitourinary: Negative Incontinence or Difficulty Voiding
Neuro: Numbness and Ataxia; Negative Dizzy, Headache, Weakness, Tremors or Speech Problem
Physical Exam
-
General: No Apparent Distress
Eyes: No Ptosis and PERRLA
HEENT: Normocephalic and Atraumatic
Neck: Full Range of Motion
Respiratory: No Dyspnea
GI: Non-distended
Extremities: No Clubbing, No Cyanosis and No Edema
Psych: Unremarkable
Extended Neurological Exam
Mood & Affect: Mood Unremarkable and Affect Unremarkable
Attention Span & Concentration: Awake, Alert and Interactive
Memory: Unremarkable (AAOx3) and Able to Recall
Tremor: Hand Tremor Absent and Head Tremor Absent
Involuntary Movement: None
Speech: Quality Unremarkable, Quantity Unremarkable and Rate of Production Unremarkable
Cranial Nerve II: Left Eye: Pupillary Reactivity Unremarkable, Pupillary Size Unremarkable and Visual [place] Intact
Cranial Nerve II: Right Eye: Pupillary Reactivity Unremarkable, Pupillary Size Unremarkable and Visual [place] Intact
Cranial Nerves III, IV, : Extraocular Movement: Extraocular Movement Full in all Directions
Cranial Nerve V: Facial Sensation: Intact to Light Touch
Cranial Nerve VII: Facial Symmetry: Normal Facial Symmetry
Cranial Nerve VIII: Hearing: Unremarkable Hearing to Normal Conversational Volume
Cranial Nerves IX, X: Palate Movement: Palate Elevation Symmetric
Cranial Nerve XI: Shoulder Shrug: Unremarkable
Cranial Nerve XII: Tongue Protusion: Midline
Muscle Strength, Overall: Full Throughout
Muscle Bulk & Tone: Bulk Unremarkable and Tone Unremarkable
Pronator Drift: No Drift in Upper Extremities and No Drift in Lower Extremities
Deep Tendon Reflexes: Absent Throughout
Cold Sensation: Reduced Severely Distally (in BLE)
Vibration Sensation: Absent Distally (in BLE)
Touch Sensation: Double Simultaneous Stimulation Unremarkable
Coordination: Xmmheo-ptpj-bustsy Testing Unremarkable
Babinski Sign: Absent Bilaterally
Data Reviewed
-
CT Head: Report Reviewed and Image Reviewed
MRI Cervical Spine: Report Reviewed and Image Reviewed
MRI Thoracic Spine: Report Reviewed and Image Reviewed
MRI Lumbar Spine: Pending
Medical Test Reports: Pending (LP)
Labs: Report Reviewed
Lipid Profile: Report Reviewed
HgbA1C: Report Reviewed
Reviewed with: Physician and Patient
Medications
-
Active Medications
Generic Name Dose Route Start Last Admin
Trade Name Freq PRN Reason Stop Dose Admin
Acetaminophen 650 mg 01/09/24 05:15
Acetaminophen 325 Mg Tablet PO 02/06/24 05:14
Q4HPRN PRN
mild pain/GUSTAFSON/temp> 100.4F
Bisacodyl 10 mg 01/09/24 05:15
Bisacodyl 10 Mg Rectal Suppository RECTAL 02/06/24 05:14
[id number] PRN
constipation
Cyanocobalamin 1,000 mcg 01/09/24 09:00 01/10/24 09:20
Cyanocobalamin (1000 Mcg/Ml) 1 Ml Vial IM 02/06/24 08:59 1,000 mcg
DAILY MARELY Administration
Dextrose 12.5 grams 01/09/24 11:46
Dextrose 50% (0.5 Grams/Ml) 50 Ml Syringe IV 02/06/24 11:45
[id number] PRN
hypoglycemia
Protocol
Enoxaparin Sodium 40 mg 01/09/24 18:00 01/09/24 18:29
Enoxaparin Sodium 40 Mg/0.4 Ml Syringe SC 02/06/24 17:59 40 mg
QPM MARELY Administration
Folic Acid 1 tablet 01/09/24 09:00 01/10/24 09:20
Folbic (Same As Foltx) PO 02/06/24 08:59 1 tablet
DAILY MARELY Administration
Glimepiride 1 mg 01/10/24 10:00 01/10/24 11:08
Glimepiride 1 Mg Tablet PO 02/07/24 09:59 1 mg
DAILY MARELY Administration
Glucagon 1 mg 01/09/24 11:46
Glucagon 1 Mg Vial IM 02/06/24 11:45
PRN PRN
hypoglycemia
Protocol
Insulin Aspart 0 units 01/09/24 12:00 01/10/24 12:23
Insulin Aspart Moderate Resistance 300 Units/3 Ml Pen.Injctr SC 02/06/24 11:59 3 units
AC MARELY Administration
Protocol
Polyethylene Glycol 17 grams 01/09/24 05:15
Polyethylene Glycol Powder 17 Grams Packet PO 02/06/24 05:14
DAILYPRN PRN
constipation
Senna/Docusate Sodium 1 tablet 01/09/24 05:15
Docusate W/Senna (Lisa-Colace) Tablet PO 02/06/24 05:14
BIDPRN PRN
constipation
Sodium Chloride 0 flush 01/09/24 02:00
Sodium Chloride 0.9% (Flush) Syringe IV 02/06/24 01:59
PER PROTOCOL MARELY
Thiamine HCl 100 mg 01/10/24 08:00 01/10/24 09:20
Thiamine 100 Mg Tablet PO 02/07/24 07:59 100 mg
DAILY MARELY Administration
Home Medications
�Medication �Instructions �Recorded
No Meds [No Current Medications] 01/09/24
[2024-01-10 16:53] LABS: Glucose - Point of Care 100 mg/dl (70-99)
[2024-01-10] MEDS: NOVOLOG FLEXPEN-MODERATE RESISTANCE SC (16:58)
[2024-01-10] MEDS: XANAX 0.5 MG PO (17:17)
[2024-01-10] MEDS: LOVENOX 40 MG SC (18:45)
[2024-01-10 21:34] LABS: Glucose - Point of Care 147 mg/dl (70-99)
[2024-01-10 23:00] VITALS: BP 129/79
--- NOTE | 2024-01-11 07:15 | W.PN.HOSP.TC ---
Today's Communication/Plan
-
D/c on Oral Antihyperglycemic agents Metformin/Glimepiride. C/w B12 supplement & follow up at [facility] in ~2 weeks.
Assessment / Plan
Assessment / Plan
53 yo gentleman with no prior medical history presented to the ED with a 1 week history of numbness in the lower extremities bilaterally
##Subacute Combined Degeneration vs. Lumbar Radiculopathy
#Numbness/Weakness in the BL Lower Extremities
- BL LE numbness, L greater than R, muscle strength 4/5 in LLE and 5/5 in the RLE, UE sensation/motor intact. Proprioception diminished in the LLE
- Neurology following
- Syphilis RPR negative, HIV negative. Lyme pending.
- Peripheral Vascular Ultrasound Doppler (-) for DVT
- Head Ct shows no acute intracranial abnormality
- MRI Cervical (positive for degenerative changes, w/o compression or abnormal enhancement). MRI Thoracic (positive for mild cord compression at T4-5. Mild cord compression at T7-8). MRI Lumbar, with special attention to L5 vertebral level (positive
for L5-S1: Generalized annular bulge combines with grade 1 spondylolisthesis contributing to advanced bilateral foraminal stenosis).
- s/p [id number] B12 inj
- Day 2 Thiamine supplementation
- Lumbar puncture not indicated at this time due to viable explanation for symptoms with Lumbar MRI + Vitamin Deficiency. Suspicion for GBS is very low. LP cancelled.
- Patient improving dramatically on B12 supplementation & PT. OK to d/c with OP follow up at [facility] [place]
#Vitamin B 12 Deficiency; uncertain etiology
- B12 level 207. No macrocytic anemia.
- Given 1000mcg IM injection x3 + QD Folate/B12 Supplement
- Consider MTHFR variant vs. Pernicious anemia possibly secondary to autoimmune gastritis
- Homocysteine, MMA, and MTHFR Variant tests pending.
- Will f/u as OP with [facility] for pending lab tests
#Newly Diagnosed Diabetes Mellitus, Type II, uncontrolled
- Has not seen a PCP in years; never been diagnosed with DM
- A1C% 10.1
- Lipid Panel checked: Tg 91, TChol. 156, LDL 105, HDL 33
- began on moderate insulin sliding scale. Will discuss PO agents when transitioning to outpatient as this diagnosis is new.
- Diabetes management consult; rec. starting Glimepiride 1mg and metformin 500 BID. We agree with this assessment. OK to D/c on this oral regimen.
#Leukocytosis (resolved)
- Unknown etiology, possibly reactive
#Dispo: Med/Surg
- Diet: Regular
- DVT PPx: Lovenox SC
- Code: Full Code
Anticipated Discharge: Today
Subjective/Interval History
-
Seen in the AM. Much improved. Able to walk better than before, with only minimal residual sensory deficits. He feels more comfortable ambulating and is eager to return home.
Objective Data
-
Labs:
Laboratory Results
01/11/24
06:00
WBC Pending
Hgb Pending
Hct Pending
Plt Count Pending
Sodium Pending
Potassium Pending
Chloride Pending
Carbon Dioxide Pending
BUN Pending
Creatinine Pending
Glucose Pending
Calcium Pending
Total Bilirubin Pending
AST Pending
ALT Pending
Alkaline Phosphatase Pending
Vital Signs:
Vital Signs
Temp Pulse Resp BP Pulse Ox
97.9 F 90 20 129/79 98
01/10/24 23:00 01/10/24 23:00 01/10/24 23:00 01/10/24 23:00 01/10/24 23:00
I&O
01/10/24 01/11/24 01/12/24
06:59 06:59 06:59
Intake Total 1650 / 1650 820 / 820
Balance 1650 / 1650 820 / 820
Review of Systems
-
History Source: Patient
All other systems: Reviewed and negative
Constitutional: Reports No Symptoms
EENT: Reports No Symptoms Reported
Respiratory: Reports No Symptoms
Cardiac: Reports No Symptoms
Abdomen/GI: Reports No Symptoms
Breast: Reports N/A
Genitourinary: Reports No Symptoms
Musculoskeletal: Reports No Symptoms
Skin: Reports No Symptoms
Neuro: Reports Weakness (Minimal; much improved from yesterday) and Numbness (Minimal; much improved from yesterday)
Endocrine: Reports No Symptoms
Physical Exam
-
General: Well Developed, Well Nourished, No Apparent Distress and Comfortable
HEENT: Normocephalic, Atraumatic, Moist Mucous Membranes, Anicteric, [place] Conjunctivae and PERRLA
Respiratory: Clear to Auscultation
Cardiac: Regular Rhythm and S1/S2
Breast: N/A
GI: Soft, Nontender, Nondistended and Normal Bowel Sounds
Musculoskeletal: No Clubbing, No Cyanosis, No Edema and Other (Firm, fibrous nodules on BL plantar surfaces, non-tender, non-erythematous, w/o discharge.)
Neuro: Awake, Alert, Oriented, No Motor Deficits (Motor strength now 5/5 BL/LE), Central Nerve's Intact and No Sensory Deficits (Minimal decrease in touch sensation to the BL LE)
Psych: Calm
[2024-01-11 07:30] VITALS: BP 115/84
[2024-01-11 07:46] LABS: Glucose - Point of Care 190 mg/dl (70-99)
--- NOTE | 2024-01-11 07:49 | PN.DE.MGMTRT ---
Insulin Management
- -
01/11/2024 Diabetes Management F/U:
Patient admitted 01/07 with bilateral leg weakness and numbness.
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 Prior to admission taking no medications. Has no primary doctor.
Glucose on admission 326. A1C is 10.1%, cr .8, eGFR > 60.
Patient often skips lunch, recommended at least protein fruit and yogurt or other carb at lunch.
Patient is awake A/O x3, sitting up in bed, able to discuss diabetes management. Patient hopes to avoid insulin.
01/09 started Glimepiride 1 mg daily and Metformin 500 mg BID to start today with dinner.
Discussed action of metformin and glimepiride and the importance of a reduced carb diet and increased physical activity.
Glucose stable and in range 100 to 217, fasting 204 (V), 190 POC this AM.
Discussed mechanism of action of long acting insulin, pt was agreeable, will start Lantus 12 units @ HS.
Cont metformin 500 mg BID and glimepiride 1mg daily. Will follow and adjust regimen if necessary.
01/09 pt was provided and instructed on Contour next glucose monitor with good return demonstration.
Reviewed steps for insulin and provided printed instructions.
Diabetes History
- -
Type of Diabetes: 2 requiring insulin
Pre-Admission Diabetes Regimen
01/10/24
08:04
Creatinine 0.8
Lab Results
Hemoglobin A1c 10.1 % (4.0-5.6) H 01/09/24 05:25
Insulin Pump Settings
IP Diabetes Regimen
01/10/24 01/10/24 01/10/24
08:03 08:04 11:58
Glucose 196 H
POC Glucose 194 H 217 H
01/10/24 01/10/24 01/11/24
16:51 21:33 07:42
Glucose
POC Glucose 100 H 147 H 190 H
Meal type: Lunch
Meal type: Breakfast
Amount consumed: 100%
Amount consumed: 100%
Patient Education
[2024-01-11 07:55] LABS: % Basophils 0.5 % (0-2); % Eosinophils 3.1 % (0-6); % Immature Granulocytes 0.3 % (0-0.5); % Lymphocytes 19.6 % (20.5-51.1); % Monocytes 9.7 % (1.7-9.3); % Neutrophils 66.8 % (42.2-75.2); Absolute Eosinophils 0.2 10^3/uL (0-0.7); Absolute Lymphocytes 1.2 10^3/uL (1.2-3.4); Absolute Monocytes 0.6 10^3/uL (0.1-0.6); Absolute Neutrophils 3.9 10^3/uL (1.4-6.5); Hematocrit 39.3 % (39.0-52.0); Hemoglobin 14.3 g/dL (13.0-18.0); Mean Corp Hgb Conc. 36.4 g/dL (33.0-37.0); Mean Corpuscular Hgb 30.6 pg (27.0-31.0); Mean Platelet Volume 11.5 fL (7.4-10.4); Nucleated Red Blood Cells % 0 % (-); Platelet Count 107 10^3/uL (130-400); Red Blood Cell Count 4.68 10^6/uL (4.70-6.10); Red Cell Dist. Width 12.2 % (11.5-14.5); White Blood Cell Count 5.9 10^3/uL (4.8-10.8)
[2024-01-11 08:17] LABS: ALT (SGPT) 39 U/L (0-50); AST (SGOT) 33 U/L (17-59); Alkaline Phosphatase 64 U/L (38-126); Blood Urea Nitrogen 19 mg/dl (9-20); Calcium 9.3 mg/dl (8.4-10.2); Carbon Dioxide 27 mmol/L (22-30); Chloride 101 mmol/L (98-107); Estimated Creatinine Clearance 124 ml/min; Glucose 204 mg/dl (70-99); Potassium 4.8 mmol/L (3.5-5.1); Sodium 140 mmol/L (135-145); Total Bilirubin 1.3 mg/dl (0.2-1.3); Total Protein 6.4 g/dl (6.3-8.2); eGFR > 60.00
[2024-01-11] MEDS: NOVOLOG FLEXPEN-MODERATE RESISTANCE 1 UNITS SC ×2 (08:18→13:32)
[2024-01-11] MEDS: AMARYL 1 MG PO (08:19)
[2024-01-11] MEDS: CYANOCOBALAMIN 1000 MCG IM (08:19)
[2024-01-11] MEDS: FOLTX 1 TABLET PO (08:19)
[2024-01-11] MEDS: VITAMIN B1 100 MG PO (08:19)
[2024-01-11] MEDS: FLUSH (NSS) 1 FLUSH IV (08:20)
[2024-01-11 12:00] LABS: Glucose - Point of Care 188 mg/dl (70-99)
[2024-01-11 12:05] LABS: HIV Combo Negative (Negative)
[2024-01-11 12:42] LABS: Syphilis/T. pallidum Ab Reflex Negative (Negative)
--- NOTE | 2024-01-11 13:34 | W.DCSUMMARY ---
Addendum entered and electronically signed by Cirilo Weaver MD, Resident 01/11/24 14:48:
[employer]er 1.5 on admission. Came down to 0.8 for the rest of the admission. If presumed baseline of 0.8, then patient meets criteria for LEONARDA which has since resolved.
Original Note:
Documented by User: Cirilo Weaver MD, Resident 01/11/24 14:09
Discharge Summary
Discharge Data
Date of Admission: 01/09/24
Date of Discharge: 01/11/24
-
Pending Results: Yes
Additional Pending Results:
Homocysteine, MMA, MTHFR variant, Lyme
Hospital Course
Discharging Physician : Dr. Cirilo Weaver, Dr. Ti Blackwood
Disposition : Home
Primary care physician : None
Principal Discharge diagnosis : Bilateral Lower Extremity Numbness, likely multifactorial due to SCD vs. Lumbar Radiculopathy vs. diabetic neuropathy, Newly Diagnosed Type II DM
Chronic Discharge diagnosis : None
Hospital Course :
Aidan Davis presented to the [facility] on 01/08/2024 for 1 week of leg weakness and numbness. His vital signs were stable and he was in no acute distress. Blood work was unremarkable except for a WBC count of 14. He had an elevated creatinine of 1.5,
an elevated glucose of 326, with no prior diagnosis of Diabetes, and a lactic acid of 3.8. A CT of the head was obtained to rule out central lesions and a venous ultrasound of the lower extremities was obtained, with no evidence for DVT. Further
workup revealed a low vitamin B12 level of 207. The patient was admitted for further workup and imaging to evaluate his sudden onset numbness.
Hospital Day 1 (01/08):
MRI scans of the cervical spine, thoracic spine, and lumbar spine were ordered to evaluate for focal lesions/pathology which could contribute to his symptoms. Further history revealed recent URI and an episode of nausea and vomiting, rousing
suspicion for GBS, and so IR was consulted for a potential Lumbar puncture with CSF analysis. Intramuscular B12 was given, along with oral supplementation to treat the B12 deficiency and rectify any potential metabolic neuropathy associated with
vitamin deficiency. Further labs for MMA, Homocysteine, and MTHFR variant were sent out as well. Syphilis and HIV testing from the prior night was still pending at this time.
A Hgb A1C% test was done which showed an A1C of 10.1. The patient was begun on insulin sliding scale for inpatient management of blood glucose. Diabetes management was consulted to discuss with the patient regarding his new diagnosis of DM Type II
& discuss an initial regimen of medication for outpatient treatment.
Hospital Day 2 (01/09):
MRIs of the Cervical and Thoracic spines came back without a clear etiology for symptoms (as described below) and so we proceeded with the Lumbar MRI. The patient was scheduled PT which began in the financial investment adviser/afternoon. By the evening, the
patient was already beginning to feel sensation return to his lower extremities. A repeat physical examination showed improvement in both motor and sensory symptoms. At this time, the patient had already received 2 IM injections of 1000mcg B12 and 2
oral supplements.
Hospital Day 3 (01/10):
MRI of the Lumbar spine (full report below) demonstrated advanced bilateral foraminal stenosis at the L5-S1 vertebral level, which correlated clinically to the symptomatology. Given this anatomical finding, and the rapid improvement of symptoms
immediately following B12 administration, it was deemed that the patient's numbness was most likely multifactorial. Considering the natural history of the patient's symptoms and clinical improvement, GBS was deemed an unlikely culprit, and so we did
not proceed with a LP w/ csf analysis.
The patient was discharged home on Hospital day 3 w/ new oral DM medication as described above and given oral supplementation of B12/Folate. An appointment was made to follow up in 2 weeks with the Family Medicine clinic.
Important imaging findings :
US Peripheral Venous LOWER Ext Bilateral:
No evidence of right or left lower extremity deep venous thrombosis.
CT Head W/o Iv Contrast:
Unenhanced CT imaging of the head reveals no findings to suggest recent infarction, intracranial hemorrhage, extra-axial fluid collection, mass effect or midline shift. The ventricles, cisterns and sulci are within the limits of normal. The
brainstem and posterior fossa structures demonstrate no significant focal abnormality.
MR Cervical Spine Without & W:
� The cervical cord is normal in size and signal intensity. No intrinsic cord signal alteration. No abnormal enhancement.
� Normal vertebral stature without compression deformity.
� Subtle curvature convex right. No anterior or posterior listhesis.
� Mild disc space narrowing most pronounced at C5-6.
� The craniocervical junction is unremarkable.
� C2-3: Minor disc osteophyte complex. No significant central canal or foraminal stenosis.
� C3-4: Mild disc osteophyte complex with left paracentral asymmetry. Slight effacement of subarachnoid space. No significant central canal narrowing. Minor left foraminal narrowing. Right neural foramen is patent.
� C4-5: Minor disc osteophyte complex with subtle left paracentral asymmetry. No significant central canal stenosis. Minor left foraminal narrowing. The right neural foramen is patent.
� C5-6: Moderate disc osteophyte complex with moderate to large right paracentral to posterolateral broad-based asymmetry extending towards the right neural foramen. Associated uncinate hypertrophy and mild facet hypertrophy. There is moderate
effacement subarachnoid space with mild to moderate central canal narrowing. No cord compression. Advanced left and severe right foraminal stenosis.
� C6-7: Mild to moderate generalized disc osteophyte complex with asymmetric moderate right posterolateral asymmetry, which combines with uncinate hypertrophy and mild facet hypertrophy contributing to moderate right foraminal stenosis. There is
mild to moderate left foraminal stenosis. There is slight effacement of anterior subarachnoid space without significant central canal stenosis, and no cord compression.
� C7-T1: Unremarkable.
MR Thoracic Spine W/o & With:
� Thoracic cord is normal in size and signal intensity. No abnormal enhancement.
� No vertebral compression deformity.
� The disc spaces are relatively well-maintained.
� T3-4: Minor annular bulge with slight effacement subarachnoid space. No significant central canal stenosis. No cord compression.
� T4-5: Mild annular bulge. Effacement to the anterior subarachnoid space. Mild cord compression. The posterior subarachnoid space is preserved. No foraminal stenosis.
� T5-6: Subtle left posterolateral shallow protrusion. No significant central canal narrowing. Minor left foraminal narrowing.
� T6-7: Small right posterolateral broad-based protrusion, contributing to mild right foraminal narrowing. No significant central canal or left foraminal stenosis.
� T7-8: Small posterior right paracentral focal disc protrusion. Moderate posterior left paracentral focal disc protrusion. Effacement to the anterior subarachnoid space with mild cord compression. Preservation of the posterior subarachnoid space.
No significant foraminal stenosis.
� T8-9: Mild annular bulge with posterior central relative sparing. Slight effacement of the anterior subarachnoid space. No cord compression.
� T9-T10: Tiny subtle right paracentral protrusion. No significant central canal stenosis. No cord compression. No significant foraminal stenosis.
� T10-11: Small, shallow broad-based right paracentral to posterolateral protrusion. Slight effacement subarachnoid space. No significant central canal stenosis. No cord compression. No significant foraminal stenosis.
� T11-T12: Small, shallow, broad-based right paracentral protrusion. Minimal impression on the anterior subarachnoid space without significant central canal stenosis. No cord compression. No significant foraminal stenosis.
� The remaining disc spaces are unremarkable.
Incidental note is made of lower right paratracheal lymph node measuring up to 1.5 cm, with a thin linear fatty hilum. Other small mediastinal lymph nodes are noted. Nonspecific. Likely reactive.
MR Lumbar Without Contrast:
� There is mild image degradation secondary to motion artifact, despite repeat imaging.
� Normal stature. Unremarkable conus terminating at T12-L1. Moderate to advanced multilevel degenerative disc space narrowing most pronounced from L3-4 through L5-S1. Multilevel disc desiccation. Bilateral spondylolysis of L5 with grade 1
spondylolisthesis measuring 6 mm.
� L1-2: Mild generalized annular bulge. Mild facet and ligament flavum hypertrophy. Mild central canal narrowing. No significant foraminal stenosis.
� L2-3: Mild generalized annular bulge. Superimposed subtle left paracentral shallow protrusion. Mild facet and ligamentum flavum hypertrophy. Mild central canal stenosis. Mild bilateral lateral recess stenosis. Moderate left foraminal stenosis.
Mild right foraminal stenosis.
� L3-4: Mild annular bulge. Mild endplate osteophyte formation. Mild facet hypertrophy. Mild central canal stenosis. Right lateral recess stenosis. Mild to moderate right and mild left foraminal stenosis.
� L4-5: Mild annular bulge. Mild endplate osteophyte formation. Small posterior central broad-based protrusion with slight impression on the thecal sac. However, no significant central canal narrowing. Mild facet hypertrophy. Mild bilateral lateral
recess stenosis. Moderate to advanced left and moderate right foraminal stenosis.
� L5-S1: Generalized annular bulge combines with grade 1 spondylolisthesis contributing to advanced bilateral foraminal stenosis. No central canal stenosis.
Procedure findings :
N/A
Discharge Plan
-
Patient Disposition: Home (Routine Discharge)
Discharge Diagnosis/Procedures: Bilateral Lower Extremity Numbness, Type II Diabetes Mellitus
Condition: Good
Diet: No restrictions
Blood Work: Homocysteine, MTHFR Variant, Methylmalonic Acid, Lyme PCR
Activity Restrictions/Additional Instructions:
You may return to work at your own discretion, when you know that you have enough strength.
Please schedule follow-up appointment with primary care referral for your regular health needs and screenings
Instructions: Diabetes and diet
Referrals:
NONE,* [Family Provider] -
Cirilo Weaver MD, Resident [Family Practice Resident Year1] - in two to three weeks (Bring Daily Sugar logs & any past medical records)
Additional Discharge Medication Instructions: Start vitamin B12 supplementation
Start metformin 5 mg twice daily
Start glimepiride 1 mg daily
Start folate 4 mcg daily
Prescriptions:
New
metformin 500 mg tablet
500 mg PO BID 30 Days Qty: 60 2RF
Rx Instructions:
Take one 500mg Tablet, two times per day
glimepiride 1 mg tablet
1 mg PO DAILY 30 Days Qty: 30 2RF
Rx Instructions:
Take one 1mg tablet, once per day
cyanocobalamin-methylcobalamin 600-600 mcg tablet, sublingual
1 tab sublingual DAILY 30 Days Qty: 30 2RF
Rx Instructions:
Take 1 tablet under the tongue, daily
folic acid 400 mcg tablet
0.4 mg PO DAILY 30 Days Qty: 30 0RF
Discharge Orders:
Discharge Patient (As Directed); Ordered 01/11/24
Ordered By: Cirilo Weaver
Discharge Date and Time
Print Language: NICARAGUAN

Documented by User: Ti Blackwood DO 01/11/24 14:30
Discharge Summary
Discharge Data
Date of Admission: 01/09/24
Date of Discharge: 01/11/24
Discharge Plan
-
Patient Disposition: Home (Routine Discharge)
Discharge Diagnosis/Procedures: Bilateral Lower Extremity Numbness, Type II Diabetes Mellitus
Condition: Good
Diet: No restrictions
Blood Work: Homocysteine, MTHFR Variant, Methylmalonic Acid, Lyme PCR
Activity Restrictions/Additional Instructions:
You may return to work at your own discretion, when you know that you have enough strength.
Please schedule follow-up appointment with primary care referral for your regular health needs and screenings
Instructions: Diabetes and diet
Referrals:
NONE,* [Family Provider] -
Cirilo Weaver MD, Resident [Family Practice Resident Year1] - in two to three weeks (Bring Daily Sugar logs & any past medical records)
Additional Discharge Medication Instructions: Start vitamin B12 supplementation
Start metformin 5 mg twice daily
Start glimepiride 1 mg daily
Start folate 4 mcg daily
Prescriptions:
New
metformin 500 mg tablet
500 mg PO BID 30 Days Qty: 60 2RF
Rx Instructions:
Take one 500mg Tablet, two times per day
glimepiride 1 mg tablet
1 mg PO DAILY 30 Days Qty: 30 2RF
Rx Instructions:
Take one 1mg tablet, once per day
cyanocobalamin-methylcobalamin 600-600 mcg tablet, sublingual
1 tab sublingual DAILY 30 Days Qty: 30 2RF
Rx Instructions:
Take 1 tablet under the tongue, daily
folic acid 400 mcg tablet
0.4 mg PO DAILY 30 Days Qty: 30 0RF
Discharge Orders:
Discharge Patient (As Directed); Ordered 01/11/24
Ordered By: Cirilo Weaver
Discharge Date and Time
Print Language: NICARAGUAN
[2024-01-11 14:18] VITALS: BP 109/75
--- NOTE | 2024-01-11 14:25 | CM ---
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 Pt agreeable to [facility]. He would like to go back to work as soon as he feels up to it, but likely will take next week
off; has discussed with his boss.
Referral sent to [facility].
--- NOTE | 2024-01-11 14:32 | PN.CDI ---
CDI
- -
CDI:
Physician Documentation Request
Admit Date: 01/09/24 05:08
Dear Doctor Meg,
Please review the following and provide your response in the progress notes.
Clinical Indicators:
Pt admitted with leg weakness and numbness.
9/4 H&P: 'Chemistries were normal except for serum creatinine of 1.5..... Lactic acid was also elevated at 3.8.'
Laboratory Tests
01/08/24 01/09/24 01/10/24
18:56 06:38 08:04
Creatinine 1.5 H 0.8 0.8
Clarify which of the following accurately represents the patient's renal status:
Acute kidney injury (resolved) - see criteria
Other
Criteria for LEONARDA*
1 Increase in serum creatinine by > or = to 0.3 mg/dL (> or = to 26.5 micromol/L) within 48 hours, OR
2 Increase in serum creatinine to > or = to 1.5 times baseline, which is known or presumed to have occurred within 7 days, OR
3 Urine volume < 0.5 nL/kg/hour for six hours
Use of terms such as suspected, likely, concern for, or probable (associated with a specific diagnosis that is being evaluated, monitored, or treated as if it exists) are acceptable and can be coded in the inpatient setting, when documented at the
time of discharge.
Thank you,
Daphne Arnett RN, BSN
CDI Specialist
Available via [employer]
Please use your independent medical judgment in providing your response.
*Source: Kidney Disease: Improving Global Outcomes (KDIGO) 2012
--- NOTE | 2024-01-11 15:31 | VNURNOTE ---
Chart reviewed. Met with patient to [facility], visits, schedule and homebound status. Patient reports he plans to return to work on light duty on Sunday. He also does not currently have a PCP, he has made a new-patient appointment
with a new PCP- appointment is in 2 weeks. Explained that since patient is returning to work Sunday and no PCP, he would not qualify for services. Patient verbalized understanding. He verbalized understanding of keeping new patient appt with
PCP in 2 weeks. Patient reported he has demonstrated to nursing here using glucometer and insulin admin. He reported his mom is a retired nurse and a neighbor is as well. ZOE Brenner updated.
[2024-01-12 02:19] LABS: Homocysteine 141 umol/L (0-15)
[2024-01-12 23:32] LABS: Lyme Disease DNA by PCR Not Detected; Lyme Source Serum
[2024-01-14 09:31] LABS: MTHFR Mutation Specimen Whole Blood; MTHFR Variant: c.665C>T Negative
[2024-01-15 09:27] LABS: Methylmalonic Acid 6.24 umol/L (0.00-0.40)
== END 2024-01-11 16:31 | disposition home health service (06) | DRG 74 ==
LOC: 4 EAST ACU 05:08
PROVIDERS: Emergency Medicine; Radiology Diagnostic Radiology; ADMITTING PHYSICIAN Internal Medicine; ATTENDING PHYSICIAN Internal Medicine; CONSULT PHYSICIAN Psychiatry & Neurology Neurology; EMERGENCY PHYSICIAN Emergency Medicine
DX: E11.42 Type 2 diabetes mellitus with diabetic polyneuropathy (principal); N17.9 Acute kidney failure, unspecified; E87.21 Acute metabolic acidosis; G32.0 Subacute combined degeneration of spinal cord in diseases classified elsewhere; E53.8 Deficiency of other specified B group vitamins; E11.65 Type 2 diabetes mellitus with hyperglycemia; D72.829 Elevated white blood cell count, unspecified; M43.17 Spondylolisthesis, lumbosacral region; M54.16 Radiculopathy, lumbar region; M48.07 Spinal stenosis, lumbosacral region; Z86.19 Personal history of other infectious and parasitic diseases; Z87.891 Personal history of nicotine dependence
CPT/HCPCS: 70450; 72148; 72156; 72157; 80048; 80053; 80061; 81291; 82550; 82607; 82728; 82962; 83036; 83090; 83540; 83550; 83605; 83735; 83921; 85025; 85610; 85652; 86140; 86780; 87389; 87476; 93005; 93970; 97163; 97166; 99285; A9575

== ENCOUNTER → 2024-06-17 06:56 | Outpatient (REF) | payer BC, SELFPAY | LOC: HWRAD 06:56 | DX: R22.1 Localized swelling, mass and lump, neck (principal) | CPT/HCPCS: 76536 ==

== ENCOUNTER → 2024-07-04 17:13 | Outpatient (REF) | payer BC, SELFPAY | LOC: MRI 17:13 | DX: E04.1 Nontoxic single thyroid nodule (principal) | CPT/HCPCS: 70543; A9575 ==